=== PATIENT | male | born 1940 | race Caucasian/White ===

== ENCOUNTER 2024-07-12 12:13 | Day surgery (SDC) | payer OTHER ==
[2024-07-12] MEDS ORDERED: HEPARIN NA (PORCINE) 5,000 UNITS/ML 1ML VIAL ONE (12:42)
[2024-07-12 13:07] LABS: ABSOLUTE IMMATURE GRANULOCYTES 0.01 x10^3/uL (0.0-0.031); BASOPHILS # 0.02 x10^3/uL (0.01-0.08); EOSINOPHIL % 4.1 % (0.8-7.0); EOSINOPHILS # 0.24 x10^3/uL (0.04-0.54); HEMATOCRIT 38.1 % (40.1-51.0); HEMOGLOBIN 11.5 g/dL (13.7-17.5); MCHC 30.2 g/dl (32.3-36.5); MEAN CELL VOLUME 99.5 fl (79.0-92.2); MEAN PLT VOLUME 10.4 fl (9.4-12.4); MONOCYTE # 0.58 x10^3/uL (0.30-0.82); MONOCYTE % 9.9 % (5.3-12.2); PLATELET COUNT 135 x10^3/uL (163-337); RDW 15.2 % (12.6-16.6)
[2024-07-12 13:13] LABS: INR 1.41 (0.83-1.09); PROTHROMBIN TIME (PATIENT) 15.4 SEC (9.7-13.0)
[2024-07-12 13:45] LABS: CHLORIDE 101 mmol/L (98-107); POTASSIUM 4.7 mmol/L (3.5-5.1); SODIUM 140 mmol/L (136-145)
[2024-07-12 13:47] LABS: ALBUMIN 3.4 g/dl (3.4-5.0); ANION GAP 5 mmol/L (4-13); BLOOD UREA NITROGEN 23.1 mg/dL (7-18); CALCIUM 9.4 mg/dL (8.5-10.1); CO2 34 mmol/L (21-32); GLUCOSE,RANDOM 120 mg/dL (74-106)
[2024-07-12 13:51] LABS: CREATININE 5.8 mg/dL (0.55-1.3); SGOT/AST 31 U/L (15-37); SGPT/ALT 38 U/L (13-61)
[2024-07-12 13:52] LABS: BILIRUBIN,TOTAL 0.5 mg/dL (0.2-1)
[2024-07-12 13:54] LABS: ALK PHOS 177 U/L (45-117)
[2024-07-12 14:06] VITALS: BP 147/80; PULSE 87; RESP 10
== END 2024-07-12 14:20 | disposition home or self-care (01) ==
LOC: JRADIR 12:13
PROVIDERS: ATTEND Surgery
PROC: 05733ZZ Dilation of Right Innominate Vein, Percutaneous Approach (ICD-10-PCS; principal; 2024-07-12)
DX: I12.0 Hypertensive chronic kidney disease with stage 5 chronic kidney disease or end stage renal disease (principal); I87.1 Compression of vein; E11.22 Type 2 diabetes mellitus with diabetic chronic kidney disease; N18.6 End stage renal disease; Z99.2 Dependence on renal dialysis; Z79.4 Long term (current) use of insulin
CPT/HCPCS: 36415; 37187; 37248; 75820-TC-FY; 80053; 85025; 85610; C1725; C1769; C1887; C1894; Q9967